=== PATIENT | female | born 1970 | race Caucasian/White ===

== ENCOUNTER 2018-01-15 15:24 | Emergency (ER) | payer SELFPAY ==
[~2018-01-15] VITALS: Ht 165.1 cm; Wt 79.8 kg
--- NOTE | 2018-01-15 15:38 | ED Back Pain ---
General Stated Complaint: POSS BROKEN TAILBONE Source of Information: Patient Exam Limitations: No Limitations History of Present Illness Date Seen by Provider: January 15, 2018 Time Seen by Provider: 15:36 Initial Comments to ER with reports of possible broken tailbone. She states that he fell landing on her buttock a few days ago and has since had pain to the midline low back that radiates down herrightleg. No loss of bowel or bladder control, no fevers or chillsno loss of sensation of the genitals.. Location: Lumbar Spine, Paraspinous Muscles Timing/Duration: 2-3 Days Severity: Moderate Associated Symptoms: muscle spasms, lower back pain Allergies and Home Medications Allergies Coded Allergies: No Known Drug Allergies (Unverified , 01/15/18) Patient Home Medication List Home Medication List Reviewed: Yes Constitutional: see HPI EENTM: see HPI Respiratory: no symptoms reported Cardiovascular: no symptoms reported Genitourinary: no symptoms reported Musculoskeletal: see HPI, back pain Skin: no symptoms reported Psychiatric/Neurological: No Symptoms Reported Past Wedyxrm-[id number] Hx Patient Social History Recent Foreign Travel: No Contact w/Someone Who Travel: No Physical Exam Vital Signs Vital Signs - First Documented 01/15/18 15:30 Temp 97.8 Pulse 105 Resp 18 B/P (MAP) 128/98 (108) Pulse Ox 97 Capillary Refill : General Appearance: No Apparent Distress, WD/WN HEENT: PERRL/EOMI, TMs Normal Neck: Full Range of Motion, Normal Inspection Respiratory: No Accessory Muscle Use, No Respiratory Distress Gastrointestinal: Normal Bowel Sounds, Non Tender, Soft Back: Normal Inspection (no ecchymosis or erythema. There is no fluctuance or erythema at the top of the gluteal cleft to suggest pilonidal abscess or other possible diagnoses.No ecchymosis or abrasion.) Extremity: Normal Capillary Refill, Normal Inspection Neurologic/Psychiatric: Alert, Oriented x3, No Motor/Sensory Deficits Skin: Normal Color, Warm/Dry Progress/Results/Core Measures Results/Orders My Orders Orders - CHIKI SANCHEZ APRN Ct Lumbar Spine Wo (01/15/18 15:35) Ketorolac Injection (Toradol Injection) (01/15/18 15:45) Orphenadrine Injection (Norflex Injectio (01/15/18 15:45) Medications Given in ED Current Medications Medications Dose Ordered Sig/Shelby Route Start Time Stop Time Status Last Admin Dose Admin Ketorolac Tromethamine 60 mg ONCE ONCE IM 01/15/18 15:45 01/15/18 15:46 DC 01/15/18 15:56 60 MG Orphenadrine Citrate 60 mg ONCE ONCE IM 01/15/18 15:45 01/15/18 15:46 DC 01/15/18 15:56 60 MG Vital Signs/I&O 01/15/18 15:30 Temp 97.8 Pulse 105 Resp 18 B/P (MAP) 128/98 (108) Pulse Ox 97 Diagnostic Imaging Diagonstic Imaging: CT Comments NAME: TENZIN AZAR [facility] REC#: [id number] PT STATUS: REG ER : 1970 PHYSICIAN: CHIKI SANCHEZ APRN ADMIT DATE: 01/15/18/ER Draft Date of Exam:01/15/18 CT LUMBAR SPINE WO Clinical indication: Patient was squatting to [employer] [place] [place], where she fell on a rock and hit her tailbone 2 days ago. The pain is through her lower back. She says it hurts to lay down and sit. Exam: Axial CT scan of the lumbar spine performed without IV contrast. Sagittal and coronal reformatted images are created. Comparison: None. Findings: There is no CT evidence of acute fracture or dislocation of the lumbar spine and visualized portions of the sacrum. These is minimal anterior spurring throughout the lumbar spine. There is mild to moderate facet arthropathy involving L4-5 and L5-S1 levels with the right L5-S1 facet affected the most. L5-S1: There is a suggestion of diffuse disc bulge with disc spurs extending into the right foraminal region. There appears be a least moderate right neural foramen narrowing and mild left neural foramen narrowing. There is no significant central canal narrowing, but the central canal region is not well delineated on this CT exam. There is no significant paraspinal soft tissue abnormality. Impression: 1: There is no acute lumbar spine fracture or dislocation. 2: There is the appearance of an L5-S1 diffuse disc bulge of possible posterior disc herniation component. There is at least moderate right neural foramen narrowing. MRI of the lumbar spine would better evaluate for this herniation at the L5-S1 level. 3: The remainder of the lumbar spine shows mild degenerative disease. Dictated on workstation # [id number] Dict: 01/15/18 1636 Trans: 01/15/18 1644 [facility] [id number] Interpreted by: SAMINA LOWERY MD Electronically signed by: Departure Impression Primary Impression: L5 S1 disc bulge Additional Impression: Low back pain Disposition: HOME, SELF-CARE Condition: Stable Departure-Patient Inst. Decision time for Depature: 16:48 Referrals: NO,LOCAL PHYSICIAN (PCP) Primary Care Physician Patient Instructions: Low Back Pain (DC) Add. Discharge Instructions: 1. Medication as directed 2. Follow-up with your primary care provider as soon as possible to schedule MRI to further evaluate this. Return to ER for any concerns such as loss of bowel or bladder control or loss of sensation of your genitals. Scripts Cyclobenzaprine HCl (Cyclobenzaprine HCl) 5 Mg Tablet 5 MG PO TID PRN for PAIN-MODERATE TO SEVERE, #30 TAB Prov: CHIKI SANCHEZ STATISTICS PROFESSOR 01/15/18 Naproxen (Naprosyn) 500 Mg Tablet 500 MG PO BID PRN for PAIN-MODERATE TO SEVERE, #30 TAB Prov: CHIKI SANCHEZ STATISTICS PROFESSOR 01/15/18 CHIKI SANCHEZ STATISTICS PROFESSOR January 15, 2018 15:38
[2018-01-15] MEDS ORDERED: KETOROLAC 60 MG/2 ML VIAL IM ONE (15:45)
[2018-01-15] MEDS ORDERED: ORPHENADRINE 60 MG/2 ML (NORFLEX) AMP IM ONE (15:45)
--- NOTE | 2018-01-15 16:45 | Diagnostic Imaging Report ---
Clinical indication: Patient was squatting to [place], where she fell on a rock and hit her tailbone 2 days ago. The pain is through her lower back. She says it hurts to lay down and sit. Exam: Axial CT scan of the lumbar spine performed without IV contrast. Sagittal and coronal reformatted images are created. Comparison: None. Findings: There is no CT evidence of acute fracture or dislocation of the lumbar spine and visualized portions of the sacrum. These is minimal anterior spurring throughout the lumbar spine. There is mild to moderate facet arthropathy involving L4-5 and L5-S1 levels with the right L5-S1 facet affected the most. L5-S1: There is a suggestion of diffuse disc bulge with disc spurs extending into the right foraminal region. There appears be a least moderate right neural foramen narrowing and mild left neural foramen narrowing. There is no significant central canal narrowing, but the central canal region is not well delineated on this CT exam. There is no significant paraspinal soft tissue abnormality. Impression: 1: There is no acute lumbar spine fracture or dislocation. 2: There is the appearance of an L5-S1 diffuse disc bulge of possible posterior disc herniation component. There is at least moderate right neural foramen narrowing. MRI of the lumbar spine would better evaluate for this herniation at the L5-S1 level. 3: The remainder of the lumbar spine shows mild degenerative disease. Dictated by: Dictated on workstation # [id number]
[2018-01-15] MEDS ORDERED: CYCL5TAB PO (16:50)
[2018-01-15] MEDS ORDERED: NAPR-1071 PO (16:50)
[2018-01-15 16:55] VITALS: BP 116/86
== END 2018-01-15 16:55 | disposition home or self-care (01) ==
LOC: ER 15:26
DX: M51.27 Other intervertebral disc displacement, lumbosacral region (principal); W17.89XA Other fall from one level to another, initial encounter
CPT/HCPCS: 72131; 96372